=== PATIENT | male | born 1935 | race African-American/Black ===

== ENCOUNTER 2016-10-05 16:38 | Inpatient (IN) | payer MEDICARE, OTHER ==
[~2016-10-05] VITALS: Ht 175.3 cm; Wt 54.5 kg
[2016-10-05] MEDS ORDERED: SODIUM CHLORIDE 0.9% 1,000 ML IV ONE (18:40)
[2016-10-05 20:24] LABS: BASOPHILS % 0.5 % (0.0-2.0); EOSINOPHILS % 1.6 % (0.0-5.0); HEMATOCRIT. 28.2 % (42.0-52.0); HEMOGLOBIN. 9.3 g/dL (14.0-18.0); MEAN CORPUSCULAR HEMOGLOBIN 24.8 pg (28.0-32.0); MEAN CORPUSCULAR VOLUME 75.5 fL (80.0-94.0); MEAN PLATELET VOLUME 8.5 fl (7.4-10.4); MONOCYTES % 8.6 % (2.0-8.0); NEUTROPHILS % 73.3 % (40.0-76.0); PLATELET 235 x1000/uL (130-400); RED BLOOD CELL COUNT 3.74 mill/uL (4.7-6.1); RED CELL DISTRIBUTION WIDTH 14.1 % (11.6-14.6)
[2016-10-05 20:26] LABS: CHLORIDE 95 mEq/L (98-107)
[2016-10-05 20:27] LABS: INR 1.1; PROTHROMBIN TIME 11.4 sec (9.4-11.6)
[2016-10-05 20:34] LABS: CARBON DIOXIDE 24 mEq/L (21-32); ETHANOL BLOOD < 10 mg/dL
[2016-10-05 20:36] LABS: TROPONIN I < 0.02 ng/mL (0.00-0.04)
[2016-10-05] MEDS ORDERED: MORPHINE SULFATE 2 MG/ML CPJ (NOT FOR IM USE) IV ONE (20:45)
[2016-10-05] MEDS ORDERED: ONDANSETRON HCL 4MG/2ML VIAL IV ONE (20:45)
[2016-10-05 21:21] LABS: CLARITY URINE CLOUDY (CLEAR); COLOR URINE YELLOW (YELLOW); GLUCOSE URINE 3+ (NEGATIVE); KETONES URINE 1+ (NEGATIVE); LEUKOCYTE ESTERASE URINE NEGATIVE (NEGATIVE); NITRITE URINE NEGATIVE (NEGATIVE); OCCULT BLOOD URINE 3+ (NEGATIVE); PROTEIN URINE 1+ (NEGATIVE); SPECIFIC GRAVITY URINE 1.037 (1.005-1.030); UROBILINOGEN URINE 0.2 E.U./dL (0.2-1.0)
[2016-10-05 21:36] LABS: *AMPHETAMINES SCREEN URINE NEGATIVE (NEGATIVE); *BARBITURATES SCREEN URINE NEGATIVE (NEGATIVE); *BENZODIAZEPINES SCREEN URINE NEGATIVE (NEGATIVE); *COCAINE SCREEN URINE NEGATIVE (NEGATIVE); CANNABINOID URINE SCREEN NEGATIVE (NEGATIVE); METHADONE URINE SCREEN NEGATIVE (NEGATIVE); OPIATES URINE SCREEN NEGATIVE (NEGATIVE); PHENCYCLIDINE URINE SCREEN NEGATIVE (NEGATIVE)
[2016-10-05 23:15] VITALS: BP 120/65
[2016-10-05 23:47] VITALS: BP 120/65
[2016-10-06] MEDS ORDERED: METF500T4 PO (00:35)
[2016-10-06] MEDS ORDERED: INSU3INS6 SUBCUT (00:35)
[2016-10-06] MEDS ORDERED: ASPI-1159 PO (00:35)
[2016-10-06] MEDS ORDERED: LISI-604 PO (00:35)
[2016-10-06] MEDS ORDERED: DEXTROSE 50% WATER 50ML SYRINGE IV PRN ×2 (01:45→10:15)
[2016-10-06 04:00] VITALS: BP 125/72
[2016-10-06 06:04] LABS: BASOPHILS % 0.6 % (0.0-2.0); EOSINOPHILS % 7.8 % (0.0-5.0); HEMATOCRIT. 25.8 % (42.0-52.0); HEMOGLOBIN. 8.5 g/dL (14.0-18.0); LYMPHOCYTES % 20.4 % (20.0-50.0); MEAN CORPUSCULAR HEMOGLOBIN 24.9 pg (28.0-32.0); MEAN CORPUSCULAR VOLUME 75.5 fL (80.0-94.0); MEAN PLATELET VOLUME 8.5 fl (7.4-10.4); MONOCYTES % 11.1 % (2.0-8.0); NEUTROPHILS % 60.1 % (40.0-76.0); PLATELET 220 x1000/uL (130-400); RED BLOOD CELL COUNT 3.42 mill/uL (4.7-6.1); RED CELL DISTRIBUTION WIDTH 14.6 % (11.6-14.6)
[2016-10-06 06:10] LABS: CARBON DIOXIDE 27 mEq/L (21-32); CHLORIDE 99 mEq/L (98-107)
[2016-10-06] MEDS ORDERED: BLOOD SUGAR DIAGNOSTIC STRIP TEST SCH (06:45)
[2016-10-06] MEDS ORDERED: INSULIN LISPRO 100 UNITS/ML SUBCUT SCH (07:15)
[2016-10-06 08:10] VITALS: BP 108/68
[2016-10-06] MEDS ORDERED: MEDICATION NOT ON FORMULARY EA (Insulin Glargine,Hum.rec.anlog (Lantus Solostar) 30 UNIT SUBCUT SCH (10:15)
[2016-10-06] MEDS: BLOOD SUGAR DIAGNOSTIC STRIP TEST SCH ×3 (11:45→21:00)
[2016-10-06 12:00] VITALS: BP 116/77
[2016-10-06] MEDS: INSULIN LISPRO 100 UNITS/ML SUBCUT SCH ×3 (12:56→21:00)
[2016-10-06 16:00] VITALS: BP 127/73
[2016-10-06] MEDS: METFORMIN HCL 500MG TABLET PO SCH (17:32)
[2016-10-06 20:00] VITALS: BP 118/73
[2016-10-06] MEDS: INSULIN DETEMIR UD 100 UNITS/ML SYR SUBCUT SCH (22:17)
[2016-10-07] VITALS: BP 108/70
[2016-10-07 04:00] VITALS: BP 103/57
[2016-10-07] MEDS: METFORMIN HCL 500MG TABLET PO SCH ×2 (07:02→17:05)
[2016-10-07] MEDS: BLOOD SUGAR DIAGNOSTIC STRIP TEST SCH ×4 (07:03→21:58)
[2016-10-07] MEDS: INSULIN LISPRO 100 UNITS/ML SUBCUT SCH ×4 (07:03→22:28)
[2016-10-07 07:55] LABS: CARCINO EMBRYONIC ANTIGEN 2.8 ng/ml
[2016-10-07 08:00] VITALS: BP 134/75
[2016-10-07 08:09] LABS: PROSTRATE SPECIFIC AG TOTAL 2.1 ng/mL (0.0-4.0)
[2016-10-07] MEDS ORDERED: ACETAMINOPHEN 325MG TABLET PO PRN (08:30)
[2016-10-07] MEDS ORDERED: ACETAMINOPHEN 650MG SUPP PR PRN (08:30)
[2016-10-07] MEDS ORDERED: MAGNESIUM/ALUMINUM HYDROXIDE/SIMETHICONE 30ML UDC PO PRN (08:30)
[2016-10-07] MEDS ORDERED: CLONIDINE 0.1MG TABLET PO PRN (08:30)
[2016-10-07] MEDS ORDERED: DIPHENHYDRAMINE 50MG/ML VIAL IV PRN (08:30)
[2016-10-07] MEDS ORDERED: ACETAMINOPHEN 650MG/20.3ML UDC GT PRN (08:30)
[2016-10-07] MEDS ORDERED: NA PHOS,M-B/NA PHOS,DI-BA ENEMA 118ML PR PRN (08:30)
[2016-10-07] MEDS ORDERED: TRAMADOL 50MG TABLET PO PRN (08:30)
[2016-10-07] MEDS ORDERED: IPRATROPIUM/ALBUTEROL 0.5-3(2.5)MG/3ML NEB INH PRN (08:30)
[2016-10-07 08:51] LABS: CARBON DIOXIDE 27 mEq/L (21-32); CHLORIDE 99 mEq/L (98-107); CREATINE KINASE 52 IU/L (39-308)
[2016-10-07 09:09] LABS: BASOPHILS % 0.3 % (0.0-2.0); EOSINOPHILS % 3.1 % (0.0-5.0); HEMOGLOBIN. 8.9 g/dL (14.0-18.0); LYMPHOCYTES % 15.7 % (20.0-50.0); MEAN CORPUSCULAR HEMOGLOBIN 25.1 pg (28.0-32.0); MEAN PLATELET VOLUME 8.8 fl (7.4-10.4); MONOCYTES % 10.5 % (2.0-8.0); NEUTROPHILS % 70.4 % (40.0-76.0); PLATELET 220 x1000/uL (130-400); RED BLOOD CELL COUNT 3.55 mill/uL (4.7-6.1)
[2016-10-07] MEDS: SODIUM CHLORIDE 0.45% 1,000 ML IV SCH ×2 (10:45→17:05)
[2016-10-07 12:00] VITALS: BP 104/59
[2016-10-07] MEDS ORDERED: POTASSIUM CHLORIDE 20MEQ TABLET SR PO NR (13:30)
[2016-10-07] MEDS: SODIUM CHLORIDE 0.9% INJ 3ML FLUSH IVF SCH ×2 (15:14→21:58)
[2016-10-07 16:30] VITALS: BP 117/73
[2016-10-07 20:00] VITALS: BP 135/77
[2016-10-07] MEDS: INSULIN DETEMIR UD 100 UNITS/ML SYR SUBCUT SCH (22:26)
[2016-10-08] VITALS: BP 118/65
[2016-10-08 04:00] VITALS: BP 92/48
[2016-10-08] MEDS: SODIUM CHLORIDE 0.45% 1,000 ML IV SCH ×2 (04:15→13:04)
[2016-10-08 05:54] LABS: BASOPHILS % 0.2 % (0.0-2.0); EOSINOPHILS % 4.2 % (0.0-5.0); HEMATOCRIT. 27.7 % (42.0-52.0); HEMOGLOBIN. 9.1 g/dL (14.0-18.0); LYMPHOCYTES % 38.2 % (20.0-50.0); MEAN CORPUSCULAR HEMOGLOBIN 24.9 pg (28.0-32.0); MEAN CORPUSCULAR VOLUME 75.4 fL (80.0-94.0); MEAN PLATELET VOLUME 8.8 fl (7.4-10.4); MONOCYTES % 8.6 % (2.0-8.0); NEUTROPHILS % 48.8 % (40.0-76.0); PLATELET 231 x1000/uL (130-400); RED BLOOD CELL COUNT 3.68 mill/uL (4.7-6.1); RED CELL DISTRIBUTION WIDTH 14.3 % (11.6-14.6)
[2016-10-08 06:18] LABS: CHLORIDE 100 mEq/L (98-107)
[2016-10-08 06:25] LABS: CARBON DIOXIDE 28 mEq/L (21-32); HDL CHOLESTEROL 31 mg/dL (40-59); LDL CHOLESTEROL 67 mg/dL (5-100)
[2016-10-08] MEDS: SODIUM CHLORIDE 0.9% INJ 3ML FLUSH IVF SCH ×3 (06:55→22:18)
[2016-10-08] MEDS: INSULIN LISPRO 100 UNITS/ML SUBCUT SCH ×4 (06:55→21:00)
[2016-10-08] MEDS: BLOOD SUGAR DIAGNOSTIC STRIP TEST SCH ×4 (06:57→21:00)
[2016-10-08 08:00] VITALS: BP 104/65
[2016-10-08] MEDS: METFORMIN HCL 500MG TABLET PO SCH ×2 (08:20→17:09)
[2016-10-08 12:00] VITALS: BP 134/74
[2016-10-08 16:00] VITALS: BP 132/78
[2016-10-08 20:00] VITALS: BP 116/57
[2016-10-08] MEDS: INSULIN DETEMIR UD 100 UNITS/ML SYR SUBCUT SCH (22:00)
[2016-10-09] VITALS: BP 122/71
[2016-10-09 04:00] VITALS: BP 132/79
[2016-10-09] MEDS: SODIUM CHLORIDE 0.45% 1,000 ML IV SCH ×3 (04:30→21:06)
[2016-10-09] MEDS: BLOOD SUGAR DIAGNOSTIC STRIP TEST SCH ×4 (06:09→21:16)
[2016-10-09] MEDS: INSULIN LISPRO 100 UNITS/ML SUBCUT SCH ×4 (06:09→21:16)
[2016-10-09] MEDS: SODIUM CHLORIDE 0.9% INJ 3ML FLUSH IVF SCH ×3 (07:06→21:18)
[2016-10-09] MEDS: METFORMIN HCL 500MG TABLET PO SCH ×2 (07:57→17:55)
[2016-10-09 08:00] VITALS: BP 123/65
[2016-10-09 12:22] VITALS: BP 141/77
[2016-10-09 16:00] VITALS: BP 102/69
[2016-10-09 17:57] LABS: TOTAL IRON BINDING CAPACITY 124 ug/dL (250-450)
[2016-10-09 18:58] LABS: CLARITY URINE CLOUDY (CLEAR); COLOR URINE YELLOW (YELLOW); GLUCOSE URINE 1+ (NEGATIVE); KETONES URINE NEGATIVE (NEGATIVE); LEUKOCYTE ESTERASE URINE NEGATIVE (NEGATIVE); NITRITE URINE POSITIVE (NEGATIVE); OCCULT BLOOD URINE TRACE (NEGATIVE); PROTEIN URINE TRACE (NEGATIVE); SPECIFIC GRAVITY URINE 1.015 (1.005-1.030); UROBILINOGEN URINE 0.2 E.U./dL (0.2-1.0)
[2016-10-09 20:00] VITALS: BP 141/69
[2016-10-09] MEDS: INSULIN DETEMIR UD 100 UNITS/ML SYR SUBCUT SCH (21:52)
[2016-10-10] VITALS: BP 130/65
[2016-10-10 04:00] VITALS: BP 125/66
[2016-10-10] MEDS: SODIUM CHLORIDE 0.9% INJ 3ML FLUSH IVF SCH ×2 (06:30→14:37)
[2016-10-10] MEDS: BLOOD SUGAR DIAGNOSTIC STRIP TEST SCH ×2 (06:31→11:45)
[2016-10-10] MEDS: METFORMIN HCL 500MG TABLET PO SCH (06:31)
[2016-10-10] MEDS: SODIUM CHLORIDE 0.45% 1,000 ML IV SCH (06:31)
[2016-10-10] MEDS: INSULIN LISPRO 100 UNITS/ML SUBCUT SCH ×2 (06:31→12:15)
[2016-10-10 08:45] VITALS: BP 165/91
[2016-10-10 12:30] VITALS: BP 158/86
[2016-10-10 16:00] VITALS: BP 128/69
[2016-10-10 16:10] VITALS: BP 150/89
== END 2016-10-10 17:15 | DRG 70 ==
LOC: ER 17:38 → 5WST 18:48 → EDBEDREQ 18:50 → ENRESERV 21:58
PROVIDERS: ADMIT Family Medicine; ATTEND Family Medicine
DX: G93.41 Metabolic encephalopathy (principal); E43 Unspecified severe protein-calorie malnutrition; E11.65 Type 2 diabetes mellitus with hyperglycemia; E86.0 Dehydration; E88.09 Other disorders of plasma-protein metabolism, not elsewhere classified; N12 Tubulo-interstitial nephritis, not specified as acute or chronic; D64.9 Anemia, unspecified; Z68.1 Body mass index [BMI] 19.9 or less, adult; R62.7 Adult failure to thrive; W10.9XXA Fall (on) (from) unspecified stairs and steps, initial encounter; R32 Unspecified urinary incontinence; I10 Essential (primary) hypertension; R15.9 Full incontinence of feces; Z86.73 Personal history of transient ischemic attack (TIA), and cerebral infarction without residual deficits; Z79.82 Long term (current) use of aspirin; Z79.84 Long term (current) use of oral hypoglycemic drugs; Z79.899 Other long term (current) drug therapy
CPT/HCPCS: 36415; 70551; 71010; 74176; 76770; 80048; 80053; 80061; 80305; 81001; 82378; 82550; 82607; 82962; 83540; 83550; 83605; 83690; 83880; 84153; 84443; 84484; 85025; 85610; 85651; 86431; 87040; 87086; 92610; 93005; 96361; 96374; 96375; 97110; 97116; 97162; 97530; 99285; G0482; J1815; J2270; J2405; J7030